=== PATIENT | female | born 1935 | race Caucasian/White ===

== ENCOUNTER 2016-11-06 20:26 | Inpatient (IN) | payer OTHER ==
[2016-11-06 20:37] VITALS: BMI 26.4
--- NOTE | 2016-11-06 20:46 | PDOC ---
History of Present Illness - General History Source: Patient <Quinton Gonzalez - Last Filed: 11/06/16 23:43> - General History Source: Patient, EMS Exam Limitations: No Limitations - History of Present Illness Initial Comments: 11/06/16 21:15 The patient is a [id number]-female, with a significant past medical history of a hyperlipidemia, valvular heart disease, and hepatitis C, who presents to the emergency department per EMS with a fever that began today. The patient reports she felt warm today and decided to take her temperature. She reports a Tmax: 104F, prior to arrival to the ED. She states she has had cold-like symptoms for about a week. She reports she previously had a non-productive cough, mild ear ache, and shaking/chills, but denies these symptoms at the moment. She reports shortness of breath but denies chest pain, diaphoresis, or palpitations. She denies associated headache or dizziness. She denies nausea, vomiting, diarrhea, and constipation. The patient denies any recent travel. The patient denies any sick contacts. Allergies: None reported. Past Surgical History: None reported. Social History: Non-smoker. Denies alcohol or drug use. <Uziel Mckay - Last Filed: 11/07/16 00:07> - General Chief Complaint: SIRS, Suspected/Possible Stated Complaint: SHORTNESS OF BREATH Time Seen by Provider: 11/06/16 20:46 Past History - Past Medical History Psychiatric Problems: Yes - Psycho/Social/Smoking Cessation Hx Suicidal Ideation: No Smoking History: Never smoked <OsmarQuinton hartley - Last Filed: 11/06/16 23:43> <Uziel Mckay - Last Filed: 11/07/16 00:07> - Past Medical History Allergies/Adverse Reactions: Allergies Allergy/AdvReac Type Severity Reaction Status Date / Time No Known Allergies Allergy Verified 11/06/16 20:33 Home Medications: Ambulatory Orders Azithromycin [Zithromax -] 250 mg PO UTDICT #6 tab 11/06/16 Review of Systems - Review of Systems Able to Perform ROS?: Yes Comments:: 11/06/16 21:15 CONSTITUTIONAL: Present: +fever Absent: chills, diaphoresis, generalized weakness, malaise, loss of appetite HEENT: Absent: rhinorrhea, nasal congestion, throat pain, throat swelling, difficulty swallowing, mouth swelling, ear pain, eye pain, visual Changes CARDIOVASCULAR: Absent: chest pain, syncope, palpitations, irregular heart rate, lightheadedness , peripheral edema RESPIRATORY: Absent: cough, shortness of breath, dyspnea with exertion, orthopnea, wheezing, stridor, hemoptysis GASTROINTESTINAL: Absent: abdominal pain, abdominal distension, nausea, vomiting, diarrhea, constipation, melena, hematochezia GENITOURINARY: Absent: dysuria, frequency, urgency, hesitancy, hematuria, flank pain, genital pain MUSCULOSKELETAL: Absent: myalgia, arthralgia, joint swelling SKIN: Absent: rash, itching, pallor HEMATOLOGIC/IMMUNOLOGIC: Absent: easy bleeding, easy bruising, lymphadenopathy, frequent infections ENDOCRINE: Absent: unexplained weight gain, unexplained weight loss, heat intolerance, cold intolerance NEUROLOGIC: Absent: headache, focal weakness or paresthesias, dizziness, unsteady gait, seizure, mental status changes, bladder or bowel incontinence PSYCHIATRIC: Absent: anxiety, depression, suicidal or homicidal ideation, hallucinations. <Uziel Mckay - Last Filed: 11/07/16 00:07> *Physical Exam - Vital Signs Last Vital Signs Temp Pulse Resp BP Pulse Ox 98.4 F 146 H 20 114/57 95 11/06/16 20:33 11/06/16 20:33 11/06/16 20:33 11/06/16 20:33 11/06/16 20:33 <Quinton Gonzalez - Last Filed: 11/06/16 23:43> - Vital Signs Last Vital Signs Temp Pulse Resp BP Pulse Ox 98.4 F 146 H 20 114/57 95 11/06/16 20:33 11/06/16 20:33 11/06/16 20:33 11/06/16 20:33 11/06/16 20:33 - Physical Exam Comments: 11/06/16 21:15 GENERAL: Afebrile. Well developed, well nourished. Awake and alert. No acute distress. HEENT: Normocephalic, atraumatic. PERRLA, EOMI. No conjunctival pallor. Sclera are non- icteric. Moist mucous membranes. Oropharynx is clear. NECK: Supple. Full ROM. No JVD. Carotid pulses 2+ and symmetric, without bruits. No thyromegaly. No lymphadenopathy. CARDIOVASCULAR: +Irregularly irregular. No murmurs, rubs, or gallops. Distal pulses are 2+ and symmetric. PULMONARY: +Lungs diminished on the left side. +Overall diminished breath sounds bilaterally. No evidence of respiratory distress. No wheezing, rales or rhonchi. ABDOMINAL: Soft. Non-tender. Non-distended. No rebound or guarding. No organomegaly. Normoactive bowel sounds. MUSCULOSKELETAL Normal range of motion at all joints. No bony deformities or tenderness. No CVA tenderness. EXTREMITIES: No cyanosis. No clubbing. No edema. No calf tenderness. SKIN: Warm and dry. Normal capillary refill. No rashes. No jaundice. NEUROLOGICAL: Alert, awake, appropriate. Cranial nerves 2-12 intact. No deficits to light touch and temperature in face, upper extremities and lower extremities. No motor deficits in the in face, upper extremities and lower extremities. Normoreflexic in the upper and lower extremities. Normal speech. Toes are down- going bilaterally. Gait is normal without ataxia. PSYCHIATRIC: Cooperative. Good eye contact. Appropriate mood and affect. <Uziel Mckay - Last Filed: 11/07/16 00:07> Heart Score/ECG Review - ECG Impressions Comment:: 11/07/16 00:06 Vent. rate: 71 bpm IMPRESSION: Normal sinus rhythm. Left axis deviation. Incomplete right bundle branch block. Minimal voltage criteria for LVH, may be normal variant. Septal infarct. <Uziel Mckay - Last Filed: 11/07/16 00:07> ED Treatment Course - LABORATORY CBC & Chemistry Diagram: 11/06/16 22:42 11/06/16 22:42 <Quinton Gonzalez - Last Filed: 11/06/16 23:43> - LABORATORY CBC & Chemistry Diagram: 11/06/16 22:42 11/06/16 22:42 - RADIOLOGY Radiograph Interpretation: 11/06/16 22:11 EXAM: CXR INTERPRETED BY: Dr. Eason REVIEWED BY: Dr. Gonzalez IMPRESSION: Lower lung field infiltrate as discussed more likely within the right middle lobe (versus the lingula). Correlate with follow-up radiography following medical therapy to document resolution. <Uziel Mckay - Last Filed: 11/07/16 00:07> Medical Decision Making - Medical Decision Making 11/06/16 21:31 Dr. Gonzalez: The scribe's documentation has been prepared under my direction and personally reviewed by me in its entirery. I confirm that the note above accurately reflects all work, treatment, procedures, and medical decision making performed by me. Patient heart rate is in the 70s, temperature is 98.1. chest xray shows evidence of right lower lobe infiltrate. Will discharge. <Quinton Gonzalez - Last Filed: 11/06/16 23:43> *DC/Admit/Observation/Transfer - Discharge Dispostion Admit: Yes <Quinton Gonzalez - Last Filed: 11/06/16 23:43> - Attestations Scribe Attestion: 11/06/16 21:15 Documentation prepared by Uziel Mckay, acting as medical transcription editor for Quinton Gonzalez DO. <Uziel Mckay - Last Filed: 11/07/16 00:07> Diagnosis at time of Disposition: Sepsis Pneumonia Qualifiers: Pneumonia type: due to unspecified organism Laterality: right Lung location: unspecified part of lung Qualified Code(s): J18.9 - Pneumonia, unspecified organism - Discharge Dispostion Disposition: HOME Condition at time of disposition: Stable - Prescriptions Prescriptions: Azithromycin [Zithromax -] 250 mg PO UTDICT #6 tab - Referrals Referrals: Herman Vaz [Primary Care Provider] - - Patient Instructions Printed Discharge Instructions: DI for Pneumonia -- Adult
[2016-11-06] MEDS ORDERED: AZITHROMYCIN IVPB 500 MG in DEXTROSE 5%-WATER - 250 ML IVPB ONE (21:56)
[2016-11-06] MEDS ORDERED: AZITHROMYCIN 250 MG TABLET (FP) PO ONE (22:01)
[2016-11-06] MEDS ORDERED: AZITHROMYCIN 250 MG TABLET (FP) ONE (22:03)
[2016-11-06] MEDS ORDERED: CEFTRIAXONE 50 ML ONE (22:20)
[2016-11-06 22:58] LABS: BASOPHIL 0.2 % (0-2.0); EOSINOPHIL 0.1 % (0-4.5); MCH 32.6 pg (25.7-33.7); MCHC 34.2 g/dl (32.0-36.0); MEAN CELL VOLUME 95.2 fl (80-96); MEAN PLT VOLUME 8.4 fl (7.5-11.1); NEUTROPHILS 84.7 % (42.8-82.8); PLATELET COUNT 210 K/MM3 (134-434); RDW 13.3 % (11.6-15.6); WHITE BLOOD COUNT 17.4 K/mm3 (4.0-10.0)
[2016-11-06 23:18] LABS: INR 1.51 (0.82-1.09); PROTHROMBIN TIME (PATIENT) 16.7 SEC (9.98-11.88)
[2016-11-06] MEDS ORDERED: LORAZEPAM CARPU-JECT 2 MG/ML DISP.SYRIN IVPUSH ONE (23:25)
[2016-11-06] MEDS ORDERED: LORAZEPAM CARPU-JECT 2 MG/ML DISP.SYRIN ONE (23:30)
[2016-11-07 00:02] LABS: ALBUMIN 3.3 g/dl (3.4-5.0); ANION GAP 8 (8-16); CALCIUM 8.5 mg/dL (8.5-10.1); CO2 23 mmol/L (21-32); CREATININE 0.8 mg/dL (0.55-1.02); GLUCOSE,RANDOM 106 mg/dL (74-106); SGOT/AST 10 U/L (15-37); SGPT/ALT 12 U/L (12-78)
[2016-11-07 00:03] LABS: ALK PHOS 59 U/L (45-117); BILIRUBIN,TOTAL 0.6 mg/dL (0.2-1.0)
[2016-11-07] MEDS ORDERED: ALBUTEROL SO4 0.083% IH SOL 2.5 MG/3 ML VIAL.NEB. NEB PRN (00:36)
[2016-11-07] MEDS ORDERED: AZITHROMYCIN IVPB 250 ML IVPB ONE (10:12)
[2016-11-07] MEDS ORDERED: CEFTRIAXONE 50 ML ONE (10:12)
[2016-11-07] MEDS: HEPARIN NA (PORCINE) 5,000 UNITS/ML 1ML VIAL SQ SCH ×2 (10:20→22:35)
[2016-11-07] MEDS: CEFTRIAXONE 50 ML IVPB SCH (10:20)
[2016-11-07] MEDS: AZITHROMYCIN IVPB 250 ML IVPB SCH (10:29)
--- NOTE | 2016-11-07 10:32 | HP ---
Admitting History and Physical - Primary Care Physician PCP: Herman Vaz - Admission Chief Complaint: came in for fever History of Present Illness: patient is 81 yr old female says she has history of deprression came in because of fever per patient last week she was having cough and was not feeling well and started on abx at home which she had lying around the house which her PMD had given her long time ago which she didnot use. she took that for four days but didnot get better called EMS today when she reportedly had temp 104 in rocephin and zithromax in ER History Source: Patient - Past Medical History Psych: Yes: Depression - Smoking History Smoking history: Never smoked Home Medications - Allergies Allergies/Adverse Reactions: Allergies Allergy/AdvReac Type Severity Reaction Status Date / Time No Known Allergies Allergy Verified 11/06/16 20:33 - Home Medications Home Medications: Ambulatory Orders Azithromycin [Zithromax -] 250 mg PO UTDICT #6 tab 11/06/16 Review of Systems - Review of Systems HENT: reports: No Symptoms Neck: reports: No Symptoms Cardiovascular: reports: No Symptoms Respiratory: reports: No Symptoms Physical Examination Vital Signs: Vital Signs Temperature 98.1 F 11/07/16 10:20 Pulse Rate 63 11/07/16 10:20 Respiratory Rate 16 11/07/16 10:20 Blood Pressure 116/59 11/07/16 10:20 O2 Sat by Pulse Oximetry (%) 97 11/07/16 05:00 Imaging - Results Chest X-ray: Report Reviewed, Image Reviewed Problem List - Problems (1) Pneumonia Assessment/Plan: iv zbx influenza screen ID saw patient trend wbc count behavioral health case manager consult put in as patient wants to speak to them Code(s): J18.9 - PNEUMONIA, UNSPECIFIED ORGANISM Qualifiers: Pneumonia type: due to unspecified organism Laterality: right Lung location: unspecified part of lung Qualified Code(s): J18.9 - Pneumonia, unspecified organism
[2016-11-07] MEDS: SODIUM CHLORIDE 1,000 ML IV SCH (11:30)
--- NOTE | 2016-11-07 11:45 | PN ---
Progress Note (short form) - Note Progress Note: ID consult dictated imp/reccd 81 year old female admitted from home with acute onset of fever to 104 she had chills, shaking at home also cough, cold symptoms for the last one week cxray with RML infiltrate CAP rocephin/zith cultures urinary antigens influenza screen wishes to see SW Problem List - Problems (1) Pneumonia Code(s): J18.9 - PNEUMONIA, UNSPECIFIED ORGANISM Qualifiers: Pneumonia type: due to unspecified organism Laterality: right Lung location: unspecified part of lung Qualified Code(s): J18.9 - Pneumonia, unspecified organism
[2016-11-07 12:59] LABS: CALCIUM 7.8 mg/dL (8.5-10.1); CREATININE 0.6 mg/dL (0.55-1.02)
[2016-11-07] MEDS ORDERED: POTASSIUM CHLORIDE TABS 20 MEQ TABLET.ER (FP) PO ONE (15:16)
--- NOTE | 2016-11-07 15:22 | EKG ---
Test Reason : Blood Pressure : / mmHG Vent. Rate : 071 BPM Atrial Rate : 071 BPM P-R Int : 176 ms QRS Dur : 108 ms QT Int : 384 ms P-R-T Axes : 064 -35 031 degrees QTc Int : 417 ms NORMAL SINUS RHYTHM LEFT ANTERIOR HEMIBLOCK INCOMPLETE RIGHT BUNDLE BRANCH BLOCK MINIMAL VOLTAGE CRITERIA FOR LVH, MAY BE NORMAL VARIANT ABNORMAL ECG NO PREVIOUS ECGS AVAILABLE Confirmed by AYDEE STALLWORTH MD ([id number]) on 11/07/2016 3:22:24 PM Referred By: Confirmed By:AYDEE STALLWORTH MD
--- NOTE | 2016-11-07 15:28 | PN ---
Progress Note (short form) - Note Progress Note: PULMONARY CONSULTATION DICTATED 11/07/16 IMP PNEUMONIA RML H/O HYPERCHOLESTERLEMIA PLAN IV ANTIBIOTICS PER ID INHALED BRONCHODILATORS NASAL O2 CULTURES F/U CHEST X-RAY DR JORGE Problem List - Problems (1) Pneumonia Code(s): J18.9 - PNEUMONIA, UNSPECIFIED ORGANISM Qualifiers: Pneumonia type: due to unspecified organism Laterality: right Lung location: unspecified part of lung Qualified Code(s): J18.9 - Pneumonia, unspecified organism (2) Hypercholesteremia Code(s): E78.0 - PURE HYPERCHOLESTEROLEMIA * DO NOT USE *
--- NOTE | 2016-11-07 16:00 | CONS ---
DATE OF CONSULTATION: DATE OF DICTATION: 11/07/2016 INFECTIOUS DISEASE CONSULTATION REQUESTING PHYSICIAN: CONSULTING PHYSICIAN: Luh Fragoso M.D. HISTORY OF PRESENT ILLNESS: An 81-year-old woman who called 911 because she had a fever of 104 at home. She has not been feeling well for the last week at home, she has been having some cough. She found some antibiotics at home that she took. We do not really know what it was, and she does not. In the emergency room, she had no fever, but she was found to have a right middle lobe infiltrate and she was advised admission. She is currently very cheerful, wants to see the high school social studies teacher and says she has problems with her children. PAST MEDICAL HISTORY: Notable for depression. She has no known allergies. She is taking no medications as an outpatient. SOCIAL HISTORY: She lives alone. She reports having 4 children, unclear. There is no history of any cigarette or substance use. REVIEW OF SYSTEMS: As per HPI. She is a very poor historian. She denies chest pain or abdominal pain. She wants to go home. PHYSICAL EXAMINATION: Vital signs: Her temperature now is 98.1. She has had no fever since admission. Blood pressure is 118/59, pulse is 69, respiratory rate 16. She is saturating 97%. HEENT: Normocephalic. Eyes are anicteric. She has no thrush. Neck: Supple. Lungs: Crackles at the right base. Otherwise clear. Abdomen: Soft, nontender. Extremities: Without edema. LABORATORY: White count 17.4, hemoglobin 12.6, platelets 210, INR 1.5. BUN and creatinine are 18 and 0.5. Cultures are pending. Her chest x-ray reveals a probable right middle lobe infiltrate. IMPRESSION: In summary, this is an 81-year-old woman admitted from the community with acute onset of fevers. She has had chills and shaking at home and cough symptoms for about a week. Chest x-ray consistent with right middle lobe infiltrate. In summary, this is a community acquired pneumonia. Will treat her with Rocephin and Zithromax. Cultures have been ordered. We have also ordered urinary antigens as well as an influenza screen. She wishes to see the high school social studies teacher while she is here. LUH FRAGOSO M.D. /[id number] DAYNA
--- NOTE | 2016-11-07 16:02 | CONSULT ---
Consult - text type - Consultation Consultation Note: Renal Consult for hyponatremia This is a 81 year old woman with PMhx of hyperlipdiemia, Valvular heart disease , Hepatitis C presented with complaints of Fever and found to have a RML PNA with hyponatremia with Na of 130. Pt states that she has been having mild cough and fever. No chest pain, Abd pain, N/V/D. No Hx of hyponatremia in the past. Drinks a large amount of water daily. Pt denies any confusion/lethargy/weakness/ seizures. Started on IV fluids here. Denies being on any diuretics at home. PMhx: as above Allergies: NDKA Family Hx: NC Social hx: No T/A/D ROS: as per HPI, all other pertinent ros negative Home Meds: Medication Instructions Recorded Azithromycin [Zithromax -] 250 mg PO UTDICT #6 tab 11/06/16 Vital Signs Temperature 98.1 F 11/07/16 10:20 Pulse Rate 69 11/07/16 11:20 Respiratory Rate 16 11/07/16 11:37 Blood Pressure 118/59 11/07/16 11:20 O2 Sat by Pulse Oximetry (%) 97 11/07/16 11:37 Intake & Output 11/04/16 11/05/16 11/06/16 11/07/16 23:59 23:59 23:59 23:59 Intake Total 612 Balance 612 Weight 139 lb 3.2 oz Gen: NAD, awake and alert HEENT: NC/AT, MMM, no JVD CVS: RRR, No M/R Lungs: CTA, no rales or wheeze Abd: soft NT/ND Ext: No edema, clubbing or edema : No bladder distension Neuro: AAOx3, no focal defects CBC, BMP 11/06/16 22:42 11/07/16 12:15 Current Medications Albuterol Sulfate (Ventolin 0.083% Nebulizer Soln -) 1 amp NEB Q4H PRN PRN Reason: SHORT OF BREATH/WHEEZING Heparin Sodium (Porcine) (Heparin -) 5,000 unit SQ BID [facility] Last Admin: 11/07/16 10:20 Dose: 5,000 unit Azithromycin (Zithromax 500mg Ivpb (Pre-Docked)) 250 mls @ 250 mls/hr IVPB DAILY [facility] Last Admin: 11/07/16 10:29 Dose: 250 mls/hr Ceftriaxone Sodium (Rocephin 1gm Ivpb (Pre-Docked)) 50 mls @ 100 mls/hr IVPB DAILY [facility] Last Admin: 11/07/16 10:20 Dose: 100 mls/hr Sodium Chloride (Normal Saline -) 1,000 mls @ 75 mls/hr IV ASDIR [facility] Last Admin: 11/07/16 11:30 Dose: 75 mls/hr A/P 81 year old woman with PMhx of hyperlipdiemia, Valvular heart disease, Hepatitis C presented with complaints of Fever and found to have a RML PNA with hyponatremia with Na of 130. #Hyponatremia secondary to SIADH vs. total body volume depletion in setting of PNA Check urine Na, Urine OSM, serum OSM, Uric acid Trend Na Q12h on isotonic saline now free water restriction of 1 L daily no indication for 3% saline #Hypokalemia s/p oral supplamentation Trend daily, check K and Mg #PNA/Leukocytosis f/u cultures continue emperic Ceftiaxone and Zithromax Thank you Will follow Petar Acuna DO
--- NOTE | 2016-11-07 18:31 | CONS ---
DATE OF CONSULTATION: 11/07/2016 PULMONARY CONSULTATION REFERRING PHYSICIAN: Jeevan Arana M.D. HISTORY OF PRESENT ILLNESS: The patient is an 81-year-old white Bulgarian female with past medical history of hypercholesterolemia, leaky valve, nonsmoker, admitted to [facility] with complaint of acute onset shortness of breath, acute onset of fever 104, shaking chills at home. Patient states for the past week she has had cold-like symptoms. She presented to the emergency room as above, she is felt to have right middle lobe infiltrate. She antibiotic therapy. As stated before, she is a nonsmoker, there is no history of occupational exposure to chemicals or fumes. She denies any previous history of pneumonia. She denies any chest pain or palpitations, nausea or hemoptysis. Denies any weight loss or night sweats. PAST MEDICAL HISTORY: Again is hypercholesterolemia, leaky valve. SOCIAL HISTORY: Born in [place] moved to [facility] in [facility]. Nonsmoker. Retired nurse's aid. CURRENT MEDICATIONS: Include Zithromax, Rocephin, heparin, albuterol, K-Dur. REVIEW OF SYSTEMS: No orthopnea, no PND. Positive cough. Positive fever. Positive chills. No chest pain. No palpitations. No nausea. No vomiting. No hemoptysis. PHYSICAL EXAMINATION: General: The patient is an elderly white female, well-developed, alert, in no acute distress. Vital signs: She is afebrile. Blood pressure is 118/59, O2 saturation is 97% on room air, respiratory rate is 16. HEENT: Head is normocephalic, atraumatic. Neck: Supple. Heart: Regular. S1, S2. Chest: Bibasilar crackles. Abdomen: Soft. Bowel sounds positive. Extremities: No cyanosis, edema. LABORATORY: WBC 17.4, hemoglobin 12.6, hematocrit 36.9, platelet count 210,000. INR 1.51, BUN 15, creatinine 0.6. Chest x-ray reveals right middle lobe infiltrate. IMPRESSION: 1. Pneumonia right middle lobe, community acquired. 2. History of hypercholesterolemia. PLAN: IV antibiotics, inhaled bronchodilators p.r.n. pain, followup chest x-ray influenza screen. ALBERT JORGE M.D. STEFANIE/[id number]
[2016-11-08 07:32] LABS: URIC ACID 2.7 mg/dL (2.6-7.2)
[2016-11-08] MEDS: CEFTRIAXONE 50 ML IVPB SCH (09:39)
[2016-11-08] MEDS: HEPARIN NA (PORCINE) 5,000 UNITS/ML 1ML VIAL SQ SCH (09:39)
--- NOTE | 2016-11-08 10:19 | PN ---
Progress Note, Physician Chief Complaint: ID Complains of pain right wrist Ceftriaxone Azithromycin - Current Medication List Current Medications: Active Medications Albuterol Sulfate (Ventolin 0.083% Nebulizer Soln -) 1 amp NEB Q4H PRN PRN Reason: SHORT OF BREATH/WHEEZING Heparin Sodium (Porcine) (Heparin -) 5,000 unit SQ BID [facility] Last Admin: 11/08/16 09:39 Dose: 5,000 unit Azithromycin (Zithromax 500mg Ivpb (Pre-Docked)) 250 mls @ 250 mls/hr IVPB DAILY [facility] Last Admin: 11/07/16 10:29 Dose: 250 mls/hr Ceftriaxone Sodium (Rocephin 1gm Ivpb (Pre-Docked)) 50 mls @ 100 mls/hr IVPB DAILY [facility] Last Admin: 11/08/16 09:39 Dose: 100 mls/hr Sodium Chloride (Normal Saline -) 1,000 mls @ 75 mls/hr IV ASDIR [facility] Last Admin: 11/07/16 11:30 Dose: 75 mls/hr - Objective Vital Signs: Vital Signs Temperature 98.1 F 11/08/16 08:30 Pulse Rate 62 11/08/16 08:30 Respiratory Rate 18 11/08/16 08:30 Blood Pressure 96/53 11/08/16 08:30 O2 Sat by Pulse Oximetry (%) 95 11/08/16 08:30 Constitutional: Yes: No Distress Neck: Yes: WNL, Supple Cardiovascular: Yes: S1, S2 Respiratory: Yes: WNL, Regular, CTA Bilaterally Gastrointestinal: Yes: WNL, Normal Bowel Sounds, Soft Extremities: Yes: Other (Swelling right wrist) Labs: CBC, BMP 11/07/16 17:05 INR, PTT INR 1.51 (0.82-1.09) H 11/06/16 22:42 Assessment/Plan Microbiology 11/08/16 05:40 Urine For Antigen Detection Legionella Antigen - Final 11/08/16 05:40 Urine For Antigen Detection Streptococcus pneumoniae Antigen (M - Final 11/06/16 22:48 Blood - Peripheral Venous Blood Culture - Preliminary NO GROWTH OBTAINED AFTER 24 HOURS, INCUBATION TO CONTINUE FOR 4 DAYS. 11/06/16 22:42 Blood - Peripheral Venous Blood Culture - Preliminary NO GROWTH OBTAINED AFTER 24 HOURS, INCUBATION TO CONTINUE FOR 4 DAYS. Laboratory Tests 11/06/16 11/07/16 22:42 12:15 WBC 17.4 H Hgb 12.6 Plt Count 210 BUN 15 Creatinine 0.6 D Assessment Pneumonia unspecified from the community Looks stable Plan Consider switch to oral therapy quinolone and repeat the CBC
--- NOTE | 2016-11-08 10:43 | PN ---
Progress Note (short form) - Note Progress Note: Renal Follow up for Hyponatremia Pt seen and examined at the bedside no acute complaints no confusion, lethargy, weakness Vital Signs Temperature 98.1 F 11/08/16 08:30 Pulse Rate 62 11/08/16 08:30 Respiratory Rate 18 11/08/16 08:30 Blood Pressure 96/53 11/08/16 08:30 O2 Sat by Pulse Oximetry (%) 95 11/08/16 08:30 Intake & Output 11/05/16 11/06/16 11/07/16 11/08/16 23:59 23:59 23:59 23:59 Intake Total 1032 800 Balance 1032 800 Weight 139 lb 3.2 oz Gen: NAD, awake and alert HEENT: NC/AT, MMM, no JVD CVS: RRR, No M/R Lungs: CTA, no rales or wheeze Abd: soft NT/ND Ext: No edema, clubbing or edema : No bladder distension Neuro: AAOx3, no focal defects CBC, BMP 11/06/16 22:42 11/07/16 17:05 no new labs today Current Medications Albuterol Sulfate (Ventolin 0.083% Nebulizer Soln -) 1 amp NEB Q4H PRN PRN Reason: SHORT OF BREATH/WHEEZING Heparin Sodium (Porcine) (Heparin -) 5,000 unit SQ BID [facility] Last Admin: 11/08/16 09:39 Dose: 5,000 unit Azithromycin (Zithromax 500mg Ivpb (Pre-Docked)) 250 mls @ 250 mls/hr IVPB DAILY [facility] Last Admin: 11/07/16 10:29 Dose: 250 mls/hr Ceftriaxone Sodium (Rocephin 1gm Ivpb (Pre-Docked)) 50 mls @ 100 mls/hr IVPB DAILY [facility] Last Admin: 11/08/16 09:39 Dose: 100 mls/hr Sodium Chloride (Normal Saline -) 1,000 mls @ 75 mls/hr IV ASDIR [facility] Last Admin: 11/07/16 11:30 Dose: 75 mls/hr A/P 81 year old woman with PMhx of hyperlipdiemia, Valvular heart disease, Hepatitis C presented with complaints of Fever and found to have a RML PNA with hyponatremia with Na of 130. #Hyponatremia secondary to SIADH vs. total body volume depletion in setting of PNA Urine studies pending Serum Na imporoved yesterday evening on IV normal saline today labs pending if Na stable can d/c IVF continue fluid restriction pending repeat labs #Hypokalemia s/p oral supplamentation Trend daily, check K and Mg - today levels pending #PNA/Leukocytosis f/u cultures continue emperic Ceftiaxone and Zithromax Petar Acuna DO
[2016-11-08] MEDS: AZITHROMYCIN IVPB 250 ML IVPB SCH (11:00)
[2016-11-08] MEDS: SODIUM CHLORIDE 1,000 ML IV SCH (11:00)
[2016-11-08 11:31] LABS: BASOPHIL 0.7 % (0-2.0); EOSINOPHIL 1.2 % (0-4.5); MCH 33.1 pg (25.7-33.7); MCHC 35.1 g/dl (32.0-36.0); MEAN CELL VOLUME 94.1 fl (80-96); MEAN PLT VOLUME 7.9 fl (7.5-11.1); NEUTROPHILS 68.1 % (42.8-82.8); PLATELET COUNT 190 K/MM3 (134-434); WHITE BLOOD COUNT 6.7 K/mm3 (4.0-10.0)
[2016-11-08] MEDS ORDERED: LEVOFLOXACIN 500 MG TABLET (FP) PO SCH (12:15)
[2016-11-08 12:33] LABS: ALBUMIN 3.1 g/dl (3.4-5.0); ANION GAP 10 (8-16); CALCIUM 8.6 mg/dL (8.5-10.1); CO2 23 mmol/L (21-32); GLUCOSE,RANDOM 121 mg/dL (74-106)
[2016-11-08 12:37] LABS: ALK PHOS 59 U/L (45-117); BILIRUBIN,TOTAL 0.2 mg/dL (0.2-1.0); CREATININE 0.5 mg/dL (0.55-1.02); SGOT/AST 9 U/L (15-37); SGPT/ALT 10 U/L (12-78)
--- NOTE | 2016-11-08 13:08 | PN ---
Progress Note, Physician History of Present Illness: PULMONARY ALERT,NAD,FEELING BETTER. - Current Medication List Current Medications: Active Medications Albuterol Sulfate (Ventolin 0.083% Nebulizer Soln -) 1 amp NEB Q4H PRN PRN Reason: SHORT OF BREATH/WHEEZING Levofloxacin (Levaquin -) 500 mg PO DAILY@0600 [facility] Last Admin: 11/08/16 12:28 Dose: Not Given - Objective Vital Signs: Vital Signs Temperature 98.1 F 11/08/16 08:30 Pulse Rate 62 11/08/16 08:30 Respiratory Rate 18 11/08/16 08:30 Blood Pressure 96/53 11/08/16 08:30 O2 Sat by Pulse Oximetry (%) 95 11/08/16 08:30 Constitutional: Yes: Well Nourished, Calm Eyes: Yes: WNL HENT: Yes: WNL Neck: Yes: WNL Cardiovascular: Yes: Regular Rate and Rhythm, S1, S2 Respiratory: Yes: Diminished Gastrointestinal: Yes: WNL Extremities: Yes: WNL Edema: No Labs: CBC, BMP 11/08/16 11:20 11/08/16 11:20 INR, PTT INR 1.51 (0.82-1.09) H 11/06/16 22:42 Problem List - Problems (1) Pneumonia Code(s): J18.9 - PNEUMONIA, UNSPECIFIED ORGANISM Qualifiers: Pneumonia type: due to unspecified organism Laterality: right Lung location: unspecified part of lung Qualified Code(s): J18.9 - Pneumonia, unspecified organism (2) Hypercholesteremia Code(s): E78.0 - PURE HYPERCHOLESTEROLEMIA * DO NOT USE * Assessment/Plan IMP PNEUMONIA RML H/O HYPERCHOLESTERLEMIA PLAN IV ANTIBIOTICS PER ID INHALED BRONCHODILATORS NASAL O2 F/U CHEST X-RAY AM DR JORGE Problem List - Problems (1) Pneumonia Code(s): J18.9 - PNEUMONIA, UNSPECIFIED ORGANISM Qualifiers: Pneumonia type: due to unspecified organism Laterality: right Lung location: unspecified part of lung Qualified Code(s): J18.9 - Pneumonia, unspecified organism (2) Hypercholesteremia Code(s): E78.0 - PURE HYPERCHOLESTEROLEMIA * DO NOT USE *
--- NOTE | 2016-11-08 13:16 | DS ---
Physical Examination Vital Signs: Vital Signs Temperature 98.1 F 11/08/16 08:30 Pulse Rate 62 11/08/16 08:30 Respiratory Rate 18 11/08/16 08:30 Blood Pressure 96/53 11/08/16 08:30 O2 Sat by Pulse Oximetry (%) 95 11/08/16 08:30 Constitutional: Yes: No Distress Eyes: Yes: WNL HENT: Yes: WNL Neck: Yes: WNL Cardiovascular: Yes: WNL Respiratory: Yes: WNL Gastrointestinal: Yes: WNL Renal/: Yes: WNL Musculoskeletal: Yes: WNL Extremities: Yes: WNL Edema: No Peripheral Pulses WNL: Yes Integumentary: Yes: WNL Wound/Incision: Yes: Clean/Dry Neurological: Yes: WNL ...Motor Strength: WNL Psychiatric: Yes: WNL Labs: CBC, BMP 11/08/16 11:20 11/08/16 11:20 Discharge Summary Reason For Visit: PNEUMONIA / SEPSIS Current Active Problems Hypercholesteremia (Acute) Pneumonia (Acute) Sepsis (Acute) Procedures: Principal: chest xray Other Procedures: labs/cx Hospital Course: admitted for iv abx, nebs, will change to po abx and dc home, with VNS follow up , PMD f/u in 1 week Condition: Stable - Instructions Diet, Activity, Other Instructions: low sodium Referrals: Herman Vaz [Primary Care Provider] - Disposition: VNS/HOME HEALTH CARE - Home Medications Comprehensive Discharge Medication List: Ambulatory Orders Levofloxacin [Levaquin -] 500 mg PO DAILY@0600 #5 tablet 11/08/16
[2016-11-08 14:32] VITALS: BP 126/56; PULSE 69; TEMP 98.2
== END 2016-11-08 16:00 | disposition home health service (06) | DRG 194 ==
LOC: JER 20:26 → UNDOADMIN 23:57 → JERBED 23:57 → J7W 11-07 12:14
PROVIDERS: ADMIT Family Medicine; ATTEND Family Medicine
DX: J18.9 Pneumonia, unspecified organism (principal); E87.1 Hypo-osmolality and hyponatremia; E87.6 Hypokalemia; E78.5 Hyperlipidemia, unspecified; B19.20 Unspecified viral hepatitis C without hepatic coma; F32.9 Major depressive disorder, single episode, unspecified; E78.00 Pure hypercholesterolemia, unspecified
CPT/HCPCS: 36415; 71020-TC; 80048; 80053; 83605; 83735; 83930; 84295; 84300; 84550; 85025; 85610; 87040; 87899; 93005; 93010; 99285-25; J1644

== ENCOUNTER 2017-02-17 15:53 | Emergency (ER) | payer MEDICARE, OTHER ==
[2017-02-17 16:00] VITALS: BP 142/55; PULSE 65; TEMP 97.8; BMI 29.2
--- NOTE | 2017-02-17 17:15 | PDOC ---
History of Present Illness - General Chief Complaint: Redness To Affected Area Stated Complaint: SCRATCH BUKCNER Time Seen by Provider: 02/17/17 16:13 - History of Present Illness Initial Comments: 02/17/17 16:44 Pt. is a 81 y/o with a PMH of HTN who presents to the ED after being scratched by a stray cat on Thursday. Pt states that she has scratches on both lower legs and there was bleeding at the time of the scratch. Pt. denies being bit by the cat. Denies fevers, chills, N/V/D, swelling of legs, or rash. Past History - Past Medical History Allergies/Adverse Reactions: Allergies Allergy/AdvReac Type Severity Reaction Status Date / Time No Known Allergies Allergy Verified 02/17/17 15:57 Home Medications: Ambulatory Orders Azithromycin [Zithromax 250mg Tablets -] 250 mg PO UTDICT #6 tab 02/17/17 Azithromycin [Zithromax 250mg Tablets -] 250 mg PO UTDICT #6 tab 02/17/17 Anemia: No Asthma: No Cancer: No Cardiac Disorders: No CVA: No COPD: No CHF: No Dementia: No Diabetes: No GI Disorders: No Disorders: No HTN: No Hypercholesterolemia: Yes Liver Disease: No Psychiatric Problems: Yes Seizures: No Thyroid Disease: No - Surgical History Abdominal Surgery: No Appendectomy: No Cardiac Surgery: No Cholecystectomy: No Lung Surgery: No Neurologic Surgery: No Orthopedic Surgery: Yes (left hip and left knee) - Psycho/Social/Smoking Cessation Hx Anxiety: No Suicidal Ideation: No Smoking History: Never smoked Have you smoked in the past 12 months: No Information on smoking cessation initiated: No Hx Alcohol Use: No Drug/Substance Use Hx: No Substance Use Type: None *Physical Exam - Vital Signs Last Vital Signs Temp Pulse Resp BP Pulse Ox 97.8 F 65 18 142/55 100 02/17/17 15:57 02/17/17 15:57 02/17/17 15:57 02/17/17 15:57 02/17/17 15:57 - Physical Exam General Appearance: Yes: Nourished, Disheveled, Mild Distress Neck: positive: Trachea midline, Supple. negative: Lymphadenopathy (R), Lymphadenopathy (L) Lymphatic: negative: Adenopathy Integumentary: positive: Normal Color, Dry, Warm, Other (scratches present on b/ l lower legs. No swelling or cellulits present). negative: Erythema, Swelling Medical Decision Making - Medical Decision Making 02/17/17 17:11 Pt. is an 81 y/o female with PMH of HTN and depression presenting with cat scratches. Pt. denies getting bit by the cat, does not want rabies vaccination. Will treat prophylactically with azithromycin at this time. Pt. agreeable to treatment and understands discharge instructions. Will return if legs become swollen, red, or if new fevers, chills occur. *DC/Admit/Observation/Transfer Diagnosis at time of Disposition: Cat scratch - Discharge Dispostion Disposition: HOME Condition at time of disposition: Stable Admit: No - Prescriptions Prescriptions: Azithromycin [Zithromax 250mg Tablets -] 250 mg PO UTDICT #6 tab Azithromycin [Zithromax 250mg Tablets -] 250 mg PO UTDICT #6 tab - Referrals Referrals: Purvi Wills [Primary Care Provider] - - Patient Instructions Additional Instructions: You have cat scratches. You were given antibiotics to prevent infection. They were sent to your pharmacy. Take the entire prescription as prescribed. Continue to keep the area clean and use antibiotic ointment on the areas. Return to the ED if you develop new fevers, chills, or swelling of the area.
== END 2017-02-17 17:31 | disposition home or self-care (01) ==
LOC: JERFT 15:53
DX: S80.812A Abrasion, left lower leg, initial encounter (principal); S80.811A Abrasion, right lower leg, initial encounter; W55.03XA Scratched by cat, initial encounter; Y93.89 Activity, other specified; Y92.89 Other specified places as the place of occurrence of the external cause; I10 Essential (primary) hypertension; E78.00 Pure hypercholesterolemia, unspecified; F32.9 Major depressive disorder, single episode, unspecified
CPT/HCPCS: 99281-25

== ENCOUNTER 2020-10-18 11:44 | Inpatient (IN) | payer OTHER ==
[2020-10-18 12:53] LABS: BASO % 0.6 % (0-2.0); EOS % 0.4 % (0-4.5); HEMATOCRIT 36.5 % (32.4-45.2); HEMOGLOBIN 12.2 GM/dL (10.7-15.3); LYMPH % 29.6 % (8-40); MCH 31.3 pg (25.7-33.7); MCHC 33.5 g/dl (32.0-36.0); MEAN CELL VOLUME 93.5 fl (80-96); MEAN PLT VOLUME 8.5 fl (7.5-11.1); MONO % 10.3 % (3.8-10.2); NEUT % 59.1 % (42.8-82.8); PLATELET COUNT 238 K/MM3 (134-434)
[2020-10-18 12:58] LABS: CHLORIDE 103 mmol/L (98-107); SODIUM 135 mmol/L (136-145)
[2020-10-18 13:00] LABS: CALCIUM 9.2 mg/dL (8.5-10.1)
[2020-10-18 13:01] LABS: ALBUMIN 3.5 g/dl (3.4-5.0); ANION GAP 4 MMOL/L (8-16); BLOOD UREA NITROGEN 15.2 mg/dL (7-18); CO2 28 mmol/L (21-32); GLUCOSE,RANDOM 90 mg/dL (74-106); LIPASE 245 U/L (73-393)
[2020-10-18 13:04] LABS: CREATININE 0.6 mg/dL (0.55-1.3); SGOT/AST 11 U/L (15-37); SGPT/ALT 15 U/L (13-61)
[2020-10-18 13:05] LABS: BILIRUBIN,TOTAL 0.4 mg/dL (0.2-1); TOT PROT 7.1 g/dl (6.4-8.2)
[2020-10-18 13:06] LABS: ALK PHOS 95 U/L (45-117)
[2020-10-18 13:37] LABS: PH,URINE 6.5 (5.0-8.0); URINE APPEARANCE CLEAR; URINE BILIRUBIN NEGATIVE (NEGATIVE); URINE COLOR YELLOW; URINE GLUCOSE (UA) NEGATIVE (NEGATIVE); URINE KETONE NEGATIVE (NEGATIVE); URINE LEUK ESTERASE NEGATIVE (NEGATIVE); URINE NITRITE NEGATIVE (NEGATIVE); URINE PROTEIN NEGATIVE (NEGATIVE); URINE UROBILINOGEN 0.2 mg/dL (0.2-1.0)
[2020-10-18] MEDS ORDERED: SODIUM CHLORIDE 500 ML IV STA ×2 (14:19→15:46)
[2020-10-18 14:55] LABS: INR 1.24 (0.83-1.09); PROTHROMBIN TIME (PATIENT) 15.2 SEC (9.7-13.0)
[2020-10-18] MEDS ORDERED: PIPERACILLIN/TAZOB 3.375 GM 3.375 GM in DEXTROSE 5%-WATER - 50 ML IVPB ONE (15:39)
[2020-10-18] MEDS ORDERED: PIPERACILLIN/TAZOB 3.375 GM 3.375 GM/50 ML BAG IVPB ONE (16:01)
[2020-10-18] MEDS ORDERED: DEXTROSE 50%-WATER - 25 GM/50 ML VIAL IVPUSH ONE (16:50)
[2020-10-18] MEDS ORDERED: DEXTROSE 50%-WATER 25 GM/50 ML DISP.SYRIN ONE (17:38)
[2020-10-18] MEDS ORDERED: ACETAMINOPHEN 1000 MG/100 ML BAG IVPB PRN (18:04)
[2020-10-18] MEDS: D5-1/2NS+20 MEQ KCL - 20 MEQ/1,000 ML INFUS.BAG IV SCH (18:53)
[2020-10-18] MEDS ORDERED: CEFTRIAXONE 2 GM/100 ML BAG IVPB ONE (21:50)
[2020-10-18] MEDS: CEFTRIAXONE 2 GM in DEXTROSE 5%-WATER 100 ML IVPB SCH (22:23)
[2020-10-18] MEDS ORDERED: ACETAMINOPHEN INJECTION 100 ML IVPB ONE (23:03)
[2020-10-19 06:42] LABS: HEMATOCRIT 34.9 % (32.4-45.2); HEMOGLOBIN 11.8 GM/dL (10.7-15.3); MCH 31.6 pg (25.7-33.7); MCHC 33.9 g/dl (32.0-36.0); PLATELET COUNT 211 K/MM3 (134-434); RBC 3.75 M/mm3 (3.60-5.2); RDW 14.7 % (11.6-15.6); WHITE BLOOD COUNT 3.2 K/mm3 (4.0-10.0)
[2020-10-19 06:50] LABS: INR 1.3 (0.83-1.09); PROTHROMBIN TIME (PATIENT) 15.9 SEC (9.7-13.0)
[2020-10-19 06:52] LABS: ACTIVATED PTT 25.4 SECONDS (25.2-36.5)
[2020-10-19 07:04] LABS: CALCIUM 8.5 mg/dL (8.5-10.1)
[2020-10-19 07:05] LABS: ALBUMIN 3.1 g/dl (3.4-5.0); BLOOD UREA NITROGEN 11.3 mg/dL (7-18); MAGNESIUM 1.8 mg/dL (1.8-2.4)
[2020-10-19 07:08] LABS: CREATININE 0.6 mg/dL (0.55-1.3)
[2020-10-19 07:09] LABS: BILIRUBIN,TOTAL 0.4 mg/dL (0.2-1); TOT PROT 6.4 g/dl (6.4-8.2)
[2020-10-19] MEDS ORDERED: DEXTROSE 5%-WATER 100 ML IVPB ONE (09:44)
[2020-10-19] MEDS: CEFTRIAXONE 2 GM in DEXTROSE 5%-WATER 100 ML IVPB SCH (09:49)
[2020-10-19] MEDS: D5-1/2NS+20 MEQ KCL - 20 MEQ/1,000 ML INFUS.BAG IV SCH (19:02)
[2020-10-20 09:48] LABS: HEMOGLOBIN 11.7 GM/dL (10.7-15.3); MCH 31.3 pg (25.7-33.7); MCHC 33.4 g/dl (32.0-36.0); MEAN CELL VOLUME 93.7 fl (80-96); MEAN PLT VOLUME 8.1 fl (7.5-11.1); PLATELET COUNT 198 K/MM3 (134-434); RBC 3.74 M/mm3 (3.60-5.2); RDW 14.8 % (11.6-15.6); WHITE BLOOD COUNT 3.3 K/mm3 (4.0-10.0)
[2020-10-20] MEDS ORDERED: PT OWN MED DRAWER 7, Y5N ONE ×3 (09:49→17:35)
[2020-10-20] MEDS ORDERED: DEXTROSE 5%-WATER 100 ML IVPB ONE (09:50)
[2020-10-20] MEDS: CEFTRIAXONE 2 GM in DEXTROSE 5%-WATER 100 ML IVPB SCH (09:54)
[2020-10-20 10:17] LABS: CALCIUM 8.7 mg/dL (8.5-10.1)
[2020-10-20 10:18] LABS: BLOOD UREA NITROGEN 7.2 mg/dL (7-18)
[2020-10-20 10:21] LABS: CREATININE 0.6 mg/dL (0.55-1.3)
[2020-10-20 10:23] LABS: BILIRUBIN,TOTAL 0.8 mg/dL (0.2-1); TOT PROT 6.1 g/dl (6.4-8.2)
[2020-10-20] MEDS: D5-1/2NS+20 MEQ KCL - 20 MEQ/1,000 ML INFUS.BAG IV SCH (17:42)
[2020-10-21] MEDS: D5-1/2NS+20 MEQ KCL - 20 MEQ/1,000 ML INFUS.BAG IV SCH ×2 (05:11→20:52)
[2020-10-21] MEDS ORDERED: DEXTROSE 5%-WATER 100 ML IVPB ONE (09:28)
[2020-10-21] MEDS: CEFTRIAXONE 2 GM in DEXTROSE 5%-WATER 100 ML IVPB SCH (11:53)
[2020-10-21] MEDS: FAMOTIDINE 20 MG/50 ML IVPB 20 MG/50 ML MG IVPB SCH (13:24)
[2020-10-21] MEDS ORDERED: HYDROmorphone HCl 2 MG/ML VIAL IVPB PRN (15:35)
[2020-10-21] MEDS: ACETAMINOPHEN 325 MG TABLET (FP) PO PRN (20:52)
[2020-10-22] MEDS ORDERED: PT OWN MED DRAWER 7, Y5N ONE ×3 (01:12→17:31)
[2020-10-22 09:16] LABS: HEMATOCRIT 34.4 % (32.4-45.2); HEMOGLOBIN 11.9 GM/dL (10.7-15.3); MCH 32.2 pg (25.7-33.7); MCHC 34.6 g/dl (32.0-36.0); MEAN CELL VOLUME 92.9 fl (80-96); MEAN PLT VOLUME 8.4 fl (7.5-11.1); PLATELET COUNT 206 K/MM3 (134-434); RDW 14.5 % (11.6-15.6); WHITE BLOOD COUNT 3.7 K/mm3 (4.0-10.0)
[2020-10-22 09:33] LABS: CALCIUM 8.8 mg/dL (8.5-10.1)
[2020-10-22 09:34] LABS: ALBUMIN 3.1 g/dl (3.4-5.0)
[2020-10-22 09:37] LABS: CREATININE 0.6 mg/dL (0.55-1.3)
[2020-10-22 09:39] LABS: BILIRUBIN,TOTAL 0.6 mg/dL (0.2-1); TOT PROT 6.2 g/dl (6.4-8.2)
[2020-10-22] MEDS ORDERED: DEXTROSE 5%-WATER 100 ML IVPB ONE (10:39)
[2020-10-22] MEDS: CEFTRIAXONE 2 GM in DEXTROSE 5%-WATER 100 ML IVPB SCH (10:40)
[2020-10-22] MEDS: FAMOTIDINE 20 MG/50 ML IVPB 20 MG/50 ML MG IVPB SCH (10:40)
[2020-10-22] MEDS: D5-1/2NS+20 MEQ KCL - 20 MEQ/1,000 ML INFUS.BAG IV SCH ×2 (17:34→21:21)
[2020-10-22] MEDS: ACETAMINOPHEN 325 MG TABLET (FP) PO PRN (21:32)
[2020-10-23] MEDS ORDERED: PT OWN MED DRAWER 7, Y5N ONE ×2 (01:54→10:44)
[2020-10-23 08:56] LABS: HEMATOCRIT 35.2 % (32.4-45.2); MCH 31.5 pg (25.7-33.7); MEAN CELL VOLUME 92.8 fl (80-96); MEAN PLT VOLUME 8.7 fl (7.5-11.1); PLATELET COUNT 190 K/MM3 (134-434); RDW 14.4 % (11.6-15.6); WHITE BLOOD COUNT 3.8 K/mm3 (4.0-10.0)
[2020-10-23 09:11] LABS: ALBUMIN 3.1 g/dl (3.4-5.0)
[2020-10-23 09:12] LABS: CALCIUM 8.9 mg/dL (8.5-10.1)
[2020-10-23 09:15] LABS: CREATININE 0.7 mg/dL (0.55-1.3)
[2020-10-23 09:17] LABS: BILIRUBIN,TOTAL 0.4 mg/dL (0.2-1); TOT PROT 6.4 g/dl (6.4-8.2)
[2020-10-23] MEDS: FAMOTIDINE 20 MG TABLET PO SCH (09:56)
[2020-10-23] MEDS ORDERED: CEFUROXIME AXETIL 500 MG TABLET PO SCH (10:00)
[2020-10-23] MEDS ORDERED: metroNIDAZOLE 250 MG TABLET PO SCH (14:00)
[2020-10-23] MEDS ORDERED: BAMLANIVIMAB 700 MG in SODIUM CHLORIDE 180 ML IVPB ONE ×2 (15:43→16:54)
[2020-10-23] MEDS ORDERED: APIXABAN 5 MG TABLET PO ONE (15:46)
[2020-10-23] MEDS ORDERED: DEXAMETHASONE SOD PHOSPHATE 4 MG/1 ML VIAL IVPUSH SCH (16:14)
[2020-10-23] MEDS: APIXABAN 5 MG TABLET PO SCH (21:02)
[2020-10-23] MEDS ORDERED: APIXABAN 5 MG TABLET PO SCH (22:00)
[2020-10-23] MEDS: ACETAMINOPHEN 325 MG TABLET (FP) PO PRN (22:06)
[2020-10-23] MEDS: MELATONIN 5 MG TABLETS PO SCH (22:10)
[2020-10-24] MEDS: APIXABAN 5 MG TABLET PO SCH ×2 (10:14→20:59)
[2020-10-24] MEDS: FAMOTIDINE 20 MG TABLET PO SCH (10:15)
[2020-10-24] MEDS ORDERED: BAMLANIVIMAB 700 MG in SODIUM CHLORIDE 180 ML IVPB ONE (12:00)
[2020-10-24] MEDS: MELATONIN 5 MG TABLETS PO SCH (20:59)
[2020-10-24] MEDS: ACETAMINOPHEN 325 MG TABLET (FP) PO PRN (22:08)
[2020-10-25 08:26] LABS: HEMATOCRIT 34.9 % (32.4-45.2); MCH 31.6 pg (25.7-33.7); MCHC 34.5 g/dl (32.0-36.0); MEAN CELL VOLUME 91.7 fl (80-96); MEAN PLT VOLUME 8.8 fl (7.5-11.1); PLATELET COUNT 202 K/MM3 (134-434); RBC 3.81 M/mm3 (3.60-5.2); RDW 14.9 % (11.6-15.6); WHITE BLOOD COUNT 3.5 K/mm3 (4.0-10.0)
[2020-10-25 08:37] LABS: ALBUMIN 3.1 g/dl (3.4-5.0); BLOOD UREA NITROGEN 8.6 mg/dL (7-18)
[2020-10-25 08:40] LABS: CREATININE 0.6 mg/dL (0.55-1.3)
[2020-10-25 08:41] LABS: BILIRUBIN,TOTAL 0.8 mg/dL (0.2-1); TOT PROT 6.3 g/dl (6.4-8.2)
[2020-10-25] MEDS: FAMOTIDINE 20 MG TABLET PO SCH (10:10)
[2020-10-25] MEDS: APIXABAN 5 MG TABLET PO SCH ×2 (10:10→21:31)
[2020-10-25 16:14] VITALS: BMI 32.5
[2020-10-25] MEDS: MELATONIN 5 MG TABLETS PO SCH (21:31)
[2020-10-25] MEDS: ACETAMINOPHEN 325 MG TABLET (FP) PO PRN (21:31)
[2020-10-26] MEDS ORDERED: PT OWN MED DRAWER 7, Y5N ONE (09:20)
[2020-10-26] MEDS: APIXABAN 5 MG TABLET PO SCH (09:21)
[2020-10-26] MEDS: FAMOTIDINE 20 MG TABLET PO SCH (09:21)
[2020-10-26 09:39] LABS: HEMATOCRIT 36.6 % (32.4-45.2); HEMOGLOBIN 12.4 GM/dL (10.7-15.3); MCH 31.5 pg (25.7-33.7); MCHC 33.8 g/dl (32.0-36.0); MEAN CELL VOLUME 93.3 fl (80-96); MEAN PLT VOLUME 8.9 fl (7.5-11.1); PLATELET COUNT 216 K/MM3 (134-434); RBC 3.92 M/mm3 (3.60-5.2); RDW 14.7 % (11.6-15.6); WHITE BLOOD COUNT 3.2 K/mm3 (4.0-10.0)
[2020-10-26 09:52] LABS: CHLORIDE 104 mmol/L (98-107); SODIUM 138 mmol/L (136-145)
[2020-10-26 10:05] LABS: ANION GAP 7 MMOL/L (8-16); BLOOD UREA NITROGEN 13.2 mg/dL (7-18); CALCIUM 9.2 mg/dL (8.5-10.1); CO2 26 mmol/L (21-32)
[2020-10-26 10:06] LABS: GLUCOSE,RANDOM 114 mg/dL (74-106)
[2020-10-26 10:09] LABS: CREATININE 0.7 mg/dL (0.55-1.3)
[2020-10-26 10:21] LABS: LDH 150 U/L (84-246)
[2020-10-26 15:02] VITALS: BP 104/57; PULSE 66; TEMP 98.1
[2020-10-26 18:48] LABS: EPI CELLS 3 /uL (0-25.1); HYALINE CASTS 0 /uL (0-3.1); PH,URINE 6.5 (5.0-8.0); URINE APPEARANCE CLEAR; URINE BILIRUBIN NEGATIVE (NEGATIVE); URINE COLOR DK YELLOW; URINE GLUCOSE (UA) NEGATIVE (NEGATIVE); URINE KETONE NEGATIVE (NEGATIVE); URINE LEUK ESTERASE NEGATIVE (NEGATIVE); URINE NITRITE POSITIVE (NEGATIVE); URINE PROTEIN NEGATIVE (NEGATIVE); URINE RBC 25 /uL (0-23.9); URINE WBC 4 /uL (0-25.8)
== END 2020-10-26 17:09 | disposition home health service (06) | DRG 178 ==
LOC: JER 11:44 → JERBED 15:40 → J5S 10-19 09:00 → J8W 10-22 18:44
PROVIDERS: ADMIT Internal Medicine; ATTEND Internal Medicine
DX: U07.1 COVID-19 (principal); K81.0 Acute cholecystitis; F32.9 Major depressive disorder, single episode, unspecified; Z96.653 Presence of artificial knee joint, bilateral; R09.02 Hypoxemia; D72.819 Decreased white blood cell count, unspecified; M15.9 Polyosteoarthritis, unspecified
CPT/HCPCS: 36415; 71045-TC-FY; 76705-TC; 78226-TC; 80048; 80053; 81003; 82550; 82728; 82962; 83615; 83690; 83735; 84100; 84484; 85025; 85027; 85379; 85610; 85730; 86140; 86850; 86900; 86901; 93005; 93010; 97116-GP; 97161-GP; 99285-25; A9537; C9803; J0131; M0239; Q0239; U0003